=== PATIENT | male | born 1960 | race African-American/Black ===

== ENCOUNTER 2021-02-04 16:32 | Inpatient (IN) | payer OTHER ==
[2021-02-04] MEDS ORDERED: MAGNESIUM CITRATE 300 ML BOTTLE PO PRN (20:27)
[2021-02-04] MEDS ORDERED: MAGNESIUM HYDROX 2400MG/30ML ORAL SUSPENSION 30 ML CUP PO PRN (20:27)
[2021-02-04] MEDS ORDERED: DICYCLOMINE HCL 10 MG CAPSULE PO PRN (20:27)
[2021-02-04] MEDS ORDERED: MAG HYDROX/AL HYDROX/SIMETH 30 ML UNIT-DOSE CUP PO PRN (20:27)
[2021-02-04] MEDS ORDERED: NICOTINE 10 MG CARTRIDGE (INHALER) IH PRN (20:27)
[2021-02-04] MEDS ORDERED: BISMUTH SUBSALICYLATE 524 MG/30 ML PO PRN (20:27)
[2021-02-04] MEDS ORDERED: ONDANSETRON *ODT* 4 MG TABLET SL PRN (20:27)
[2021-02-04] MEDS ORDERED: ACETAMINOPHEN 325 MG TABLET (FP) PO PRN (20:27)
[2021-02-04] MEDS ORDERED: MENTHOL/PHENOL 1 EACH UD MM PRN (20:27)
[2021-02-04] MEDS ORDERED: P-EPHED 60MG/TRIPROLIDI 2.5MG TABLET PO PRN (20:27)
[2021-02-04] MEDS ORDERED: IBUPROFEN 400 MG TABLET (FP) PO PRN (20:27)
[2021-02-04] MEDS ORDERED: guaiFENesin 200 MG/10 ML 10 ML UNIT-DOSE CUPS PO PRN (20:27)
[2021-02-04 20:42] VITALS: BMI 36.7
[2021-02-04] MEDS: THIAMINE HCL 100 MG TABLET (FP) PO SCH (23:55)
[2021-02-04] MEDS: MELATONIN 5 MG TABLETS PO SCH (23:55)
[2021-02-05] MEDS ORDERED: diazePAM 5 MG TABLET PO PRN (10:46)
[2021-02-05] MEDS: NICOTINE 21 MG/24 HOURS TOPICAL PATCH TD SCH (11:43)
[2021-02-05] MEDS: PRENATAL VITAMINS W/ FOLIC ACID TABLET (FP) PO SCH (11:44)
[2021-02-05 12:13] LABS: HEMATOCRIT 38.1 % (35.4-49); HEMOGLOBIN 12.1 GM/dL (11.7-16.9); MCH 24.3 pg (25.7-33.7); MCHC 31.8 g/dl (32.0-35.9); MEAN CELL VOLUME 76.6 fl (80-96); MEAN PLT VOLUME 9.9 fl (7.5-11.1); PLATELET COUNT 198 10^3/uL (134-434); RBC 4.98 M/mm3 (4.00-5.60); RDW 16.4 % (11.9-15.9); WHITE BLOOD COUNT 6.1 K/mm3 (4.0-10.0)
[2021-02-05 12:19] LABS: BLOOD UREA NITROGEN 14.4 mg/dL (7-18); CALCIUM 8.2 mg/dL (8.5-10.1)
[2021-02-05 12:28] LABS: BILIRUBIN,TOTAL 0.8 mg/dL (0.2-1); CREATININE 1.3 mg/dL (0.55-1.3)
[2021-02-05 12:29] LABS: TOT PROT 6.6 g/dl (6.4-8.2)
[2021-02-05] MEDS: diazePAM 5 MG TABLET PO SCH ×3 (12:42→23:36)
[2021-02-05] MEDS: METHOCARBAMOL 500 MG TABLET PO PRN ×2 (13:42→23:36)
[2021-02-05] MEDS ORDERED: MASKS NR ONE (13:46)
[2021-02-05] MEDS: MELATONIN 5 MG TABLETS PO SCH (23:36)
[2021-02-05] MEDS: THIAMINE HCL 100 MG TABLET (FP) PO SCH (23:36)
[2021-02-06] MEDS: diazePAM 5 MG TABLET PO SCH ×4 (05:18→23:10)
[2021-02-06] MEDS: ACETAMINOPHEN 325 MG TABLET (FP) PO PRN (06:24)
[2021-02-06] MEDS: METHOCARBAMOL 500 MG TABLET PO PRN (06:24)
[2021-02-06] MEDS ORDERED: cloNIDine HCL 0.1 MG TABLET PO ONE ×2 (08:15→15:25)
[2021-02-06] MEDS: NICOTINE 21 MG/24 HOURS TOPICAL PATCH TD SCH (10:57)
[2021-02-06] MEDS: PRENATAL VITAMINS W/ FOLIC ACID TABLET (FP) PO SCH (10:57)
[2021-02-06] MEDS: hydrOXYzine PAMOATE 25 MG CAPSULE (FP) PO PRN ×2 (19:20→23:10)
[2021-02-06] MEDS: cloNIDine HCL 0.1 MG TABLET PO SCH (23:09)
[2021-02-06] MEDS: MELATONIN 5 MG TABLETS PO SCH (23:10)
[2021-02-06] MEDS: THIAMINE HCL 100 MG TABLET (FP) PO SCH (23:10)
[2021-02-07] MEDS: diazePAM 5 MG TABLET PO SCH ×3 (07:29→23:10)
[2021-02-07] MEDS: cloNIDine HCL 0.1 MG TABLET PO SCH ×2 (11:20→23:10)
[2021-02-07] MEDS: PRENATAL VITAMINS W/ FOLIC ACID TABLET (FP) PO SCH (11:20)
[2021-02-07] MEDS: NICOTINE 21 MG/24 HOURS TOPICAL PATCH TD SCH (11:20)
[2021-02-07] MEDS: ACETAMINOPHEN 325 MG TABLET (FP) PO PRN (11:21)
[2021-02-07] MEDS: METHOCARBAMOL 500 MG TABLET PO PRN (11:22)
[2021-02-07] MEDS: LISINOPRIL 10 MG TABLET PO SCH (14:45)
[2021-02-07] MEDS ORDERED: cloNIDine HCL 0.1 MG TABLET PO ONE (19:46)
[2021-02-07] MEDS: IBUPROFEN 400 MG TABLET (FP) PO PRN (20:00)
[2021-02-07] MEDS: MELATONIN 5 MG TABLETS PO SCH (23:10)
[2021-02-07] MEDS: THIAMINE HCL 100 MG TABLET (FP) PO SCH (23:15)
[2021-02-08] MEDS: diazePAM 5 MG TABLET PO SCH ×2 (06:29→21:00)
[2021-02-08] MEDS: IBUPROFEN 400 MG TABLET (FP) PO PRN (06:37)
[2021-02-08] MEDS: PRENATAL VITAMINS W/ FOLIC ACID TABLET (FP) PO SCH (11:07)
[2021-02-08] MEDS: NICOTINE 21 MG/24 HOURS TOPICAL PATCH TD SCH (11:07)
[2021-02-08] MEDS: LISINOPRIL 10 MG TABLET PO SCH (11:07)
[2021-02-08] MEDS: METHOCARBAMOL 500 MG TABLET PO PRN (11:13)
[2021-02-08] MEDS: ACETAMINOPHEN 325 MG TABLET (FP) PO PRN (11:13)
[2021-02-08] MEDS: cloNIDine HCL 0.1 MG TABLET PO SCH (13:11)
[2021-02-09] MEDS: cloNIDine HCL 0.1 MG TABLET PO SCH ×2 (00:08→10:46)
[2021-02-09] MEDS: MELATONIN 5 MG TABLETS PO SCH (00:08)
[2021-02-09] MEDS: THIAMINE HCL 100 MG TABLET (FP) PO SCH (00:08)
[2021-02-09] MEDS ORDERED: diazePAM 5 MG TABLET PO ONE (06:00)
[2021-02-09 06:37] VITALS: BP 156/98; PULSE 64; TEMP 97.5
[2021-02-09] MEDS: ACETAMINOPHEN 325 MG TABLET (FP) PO PRN (10:46)
[2021-02-09] MEDS: NICOTINE 21 MG/24 HOURS TOPICAL PATCH TD SCH (10:46)
[2021-02-09] MEDS: PRENATAL VITAMINS W/ FOLIC ACID TABLET (FP) PO SCH (10:46)
[2021-02-09] MEDS: LISINOPRIL 10 MG TABLET PO SCH (10:46)
== END 2021-02-09 18:35 | disposition other institution (70) | DRG 774 ==
LOC: YASAS 16:32 → Y3N 23:37
PROVIDERS: ADMIT Allergy & Immunology; ATTEND Allergy & Immunology
PROC: HZ2ZZZZ Detoxification Services for Substance Abuse Treatment (ICD-10-PCS; principal; 2021-02-04)
DX: F10.230 Alcohol dependence with withdrawal, uncomplicated (principal); F14.20 Cocaine dependence, uncomplicated; F16.20 Hallucinogen dependence, uncomplicated; F17.210 Nicotine dependence, cigarettes, uncomplicated; F31.9 Bipolar disorder, unspecified; F19.24 Other psychoactive substance dependence with psychoactive substance-induced mood disorder; I10 Essential (primary) hypertension; E66.9 Obesity, unspecified; Z68.39 Body mass index [BMI] 39.0-39.9, adult; M25.561 Pain in right knee; S80.01XD Contusion of right knee, subsequent encounter; W19.XXXD Unspecified fall, subsequent encounter; Z99.89 Dependence on other enabling machines and devices; Z56.0 Unemployment, unspecified; Z59.0 Homelessness
CPT/HCPCS: 36415; 80053; 85027; 86780; 93005; 93010; C9803; J0735; U0003; U0005

== ENCOUNTER 2021-02-09 18:14 | Inpatient (IN) | payer OTHER ==
[2021-02-09] MEDS ORDERED: IBUPROFEN 600 MG TABLET (FP) PO ONE (19:36)
[2021-02-09 20:36] VITALS: BP 188/126; PULSE 60; TEMP 98.4
[2021-02-09] MEDS ORDERED: MELATONIN 5 MG TABLETS PO SCH (22:00)
[2021-02-09] MEDS ORDERED: ACETAMINOPHEN 325 MG TABLET (FP) PO PRN (22:04)
[2021-02-09] MEDS ORDERED: guaiFENesin 200 MG/10 ML 10 ML UNIT-DOSE CUPS PO PRN (22:04)
[2021-02-09] MEDS ORDERED: MAGNESIUM CITRATE 300 ML BOTTLE PO PRN (22:04)
[2021-02-09] MEDS ORDERED: P-EPHED 60MG/TRIPROLIDI 2.5MG TABLET PO PRN (22:04)
[2021-02-09] MEDS ORDERED: MENTHOL/PHENOL 1 EACH UD MM PRN (22:04)
[2021-02-09] MEDS ORDERED: MAGNESIUM HYDROX 2400MG/30ML ORAL SUSPENSION 30 ML CUP PO PRN (22:04)
[2021-02-09] MEDS ORDERED: LOPERAMIDE HCL 2 MG CAPSULE PO PRN (22:04)
[2021-02-09] MEDS ORDERED: IBUPROFEN 400 MG TABLET (FP) PO PRN (22:04)
[2021-02-09] MEDS ORDERED: MAG HYDROX/AL HYDROX/SIMETH 30 ML UNIT-DOSE CUP PO PRN (22:04)
[2021-02-10] MEDS ORDERED: PRENATAL VITAMINS W/ FOLIC ACID TABLET (FP) PO SCH (10:00)
[2021-02-10] MEDS ORDERED: LISINOPRIL 10 MG TABLET PO SCH (10:00)
[2021-02-10] MEDS ORDERED: THIAMINE HCL 100 MG TABLET (FP) PO SCH (22:00)
== END 2021-02-10 00:58 | disposition short-term general hospital (02) | DRG 772 ==
LOC: YASAS 18:14 → Y3W 18:16
PROVIDERS: ADMIT Allergy & Immunology; ATTEND Allergy & Immunology
PROC: HZ42ZZZ Group Counseling for Substance Abuse Treatment, Cognitive-Behavioral (ICD-10-PCS; principal; 2021-02-09)
DX: F10.20 Alcohol dependence, uncomplicated (principal); F14.20 Cocaine dependence, uncomplicated; F16.20 Hallucinogen dependence, uncomplicated; F17.210 Nicotine dependence, cigarettes, uncomplicated; I10 Essential (primary) hypertension; E66.9 Obesity, unspecified; Z68.36 Body mass index [BMI] 36.0-36.9, adult; Z86.19 Personal history of other infectious and parasitic diseases; R29.6 Repeated falls; W07.XXXA Fall from chair, initial encounter; Y92.239 Unspecified place in hospital as the place of occurrence of the external cause
CPT/HCPCS: 70450-TC

== ENCOUNTER 2021-02-09 20:17 | Inpatient (IN) | payer OTHER ==
[2021-02-09 20:28] VITALS: BMI 35.4
[2021-02-09] MEDS ORDERED: morphine CARPU-JECT 4 MG/1 ML DISP.SYRIN IVPUSH ONE ×2 (20:50→23:43)
[2021-02-09] MEDS ORDERED: ACETAMINOPHEN 1000 MG/100 ML VIAL (NON FORMULARY) IVPB ONE (20:50)
[2021-02-09] MEDS ORDERED: LISINOPRIL 10 MG TABLET PO ONE (20:51)
[2021-02-09] MEDS ORDERED: LABETALOL HCL 100 MG TABLET (FP) PO ONE (20:51)
[2021-02-09 21:01] LABS: BASO % 0.7 % (0-2.0); EOS % 1.7 % (0-4.5); HEMATOCRIT 39.6 % (35.4-49); HEMOGLOBIN 12.5 GM/dL (11.7-16.9); LYMPH % 17.7 % (8-40); MCH 24.2 pg (25.7-33.7); MCHC 31.6 g/dl (32.0-35.9); MEAN CELL VOLUME 76.4 fl (80-96); MEAN PLT VOLUME 9.5 fl (7.5-11.1); MONO % 10.8 % (3.8-10.2); NEUT % 69.1 % (42.8-82.8); PLATELET COUNT 200 10^3/uL (134-434); RBC 5.19 M/mm3 (4.00-5.60); RDW 16.4 % (11.9-15.9); WHITE BLOOD COUNT 7.2 K/mm3 (4.0-10.0)
[2021-02-09 21:22] LABS: CHLORIDE 108 mmol/L (98-107); SODIUM 142 mmol/L (136-145)
[2021-02-09] MEDS ORDERED: morphine SULFATE 4 MG/ML VIAL ONE (21:23)
[2021-02-09 21:24] LABS: ALBUMIN 2.9 g/dl (3.4-5.0); ANION GAP 6 MMOL/L (8-16); CALCIUM 8.6 mg/dL (8.5-10.1); CO2 28 mmol/L (21-32); GLUCOSE,RANDOM 92 mg/dL (74-106)
[2021-02-09] MEDS ORDERED: LISINOPRIL 5 MG TABLET ONE (21:24)
[2021-02-09] MEDS ORDERED: ACETAMINOPHEN INJECTION 100 ML IVPB ONE (21:24)
[2021-02-09] MEDS ORDERED: LABETALOL HCL 100 MG TABLET (FP) ONE (21:24)
[2021-02-09 21:25] LABS: BLOOD UREA NITROGEN 17.2 mg/dL (7-18)
[2021-02-09 21:27] LABS: SGOT/AST 23 U/L (15-37); SGPT/ALT 35 U/L (13-61)
[2021-02-09 21:28] LABS: CREATININE 1.3 mg/dL (0.55-1.3)
[2021-02-09 21:29] LABS: BILIRUBIN,TOTAL 0.3 mg/dL (0.2-1); TOT PROT 6.8 g/dl (6.4-8.2)
[2021-02-09 21:30] LABS: ALK PHOS 76 U/L (45-117)
[2021-02-09 21:32] LABS: N-TERMINAL BNP 296.4 pg/ml (5-125)
[2021-02-10] MEDS ORDERED: ACETAMINOPHEN 325 MG TABLET (FP) PO PRN ×3 (02:23→16:00)
[2021-02-10 06:43] LABS: BASO % 0.7 % (0-2.0); EOS % 1.5 % (0-4.5); HEMATOCRIT 36.4 % (35.4-49); HEMOGLOBIN 11.7 GM/dL (11.7-16.9); MCH 24.5 pg (25.7-33.7); MCHC 32.2 g/dl (32.0-35.9); MEAN CELL VOLUME 76.1 fl (80-96); MEAN PLT VOLUME 9.9 fl (7.5-11.1); MONO % 9.2 % (3.8-10.2); NEUT % 67.6 % (42.8-82.8); PLATELET COUNT 181 10^3/uL (134-434); RBC 4.78 M/mm3 (4.00-5.60); RDW 16.4 % (11.9-15.9); WHITE BLOOD COUNT 6.8 K/mm3 (4.0-10.0)
[2021-02-10 07:03] LABS: BLOOD UREA NITROGEN 19.1 mg/dL (7-18); CALCIUM 7.8 mg/dL (8.5-10.1)
[2021-02-10 07:04] LABS: ALBUMIN 2.6 g/dl (3.4-5.0); MAGNESIUM 2.2 mg/dL (1.8-2.4)
[2021-02-10 07:07] LABS: BILIRUBIN,TOTAL 0.6 mg/dL (0.2-1); CREATININE 1.3 mg/dL (0.55-1.3); PHOSPHOROUS 4.4 mg/dL (2.5-4.9); TOT PROT 6.2 g/dl (6.4-8.2)
[2021-02-10] MEDS ORDERED: ACETAMINOPHEN 325 MG TABLET (FP) ONE ×2 (09:05→09:10)
[2021-02-10] MEDS: HYDROCHLOROTHIAZIDE 12.5 MG CAPSULE (FP) PO SCH (09:10)
[2021-02-10] MEDS ORDERED: HYDROCHLOROTHIAZIDE 25 MG TABLET (FP) ONE (09:53)
[2021-02-10] MEDS ORDERED: LISINOPRIL 10 MG TABLET PO SCH ×2 (10:00→22:00)
[2021-02-10] MEDS ORDERED: MORPHINE SULFATE 2 MG/ML VIAL IVPUSH PRN (10:01)
[2021-02-10 10:12] LABS: EPI CELLS 12 /uL (0-25.1); HYALINE CASTS 5 /uL (0-3.1); PH,URINE 5.5 (5.0-8.0); URINE APPEARANCE CLEAR; URINE BACTERIA 77 /uL (0-1359); URINE BILIRUBIN NEGATIVE (NEGATIVE); URINE COLOR YELLOW; URINE GLUCOSE (UA) NEGATIVE (NEGATIVE); URINE KETONE NEGATIVE (NEGATIVE); URINE LEUK ESTERASE 1+ (NEGATIVE); URINE NITRITE NEGATIVE (NEGATIVE); URINE PROTEIN NEGATIVE (NEGATIVE); URINE RBC 8 /uL (0-23.9); URINE WBC 114 /uL (0-25.8)
[2021-02-10] MEDS: ENOXAPARIN NA (PORCINE) 40 MG/0.4 ML DISP.SYRIN SQ SCH (10:22)
[2021-02-10] MEDS ORDERED: ENOXAPARIN NA (PORCINE) 40 MG/0.4 ML DISP.SYRIN SQ ONE (10:42)
[2021-02-10] MEDS ORDERED: MORPHINE SULFATE 2 MG/ML VIAL ONE (12:29)
[2021-02-10] MEDS ORDERED: ALBUTEROL SO4 HFA INHALER IH PRN (15:45)
[2021-02-10] MEDS: NIFEdipine E.R 60 MG TABLET PO SCH (17:10)
[2021-02-10] MEDS ORDERED: UMECLIDINIUM/VILANTEROL (ANORO) 62.5/25 MCG INHALER IH SCH (22:00)
[2021-02-10] MEDS ORDERED: QUEtiapine FUMARATE 25 MG TABLET ONE (23:07)
[2021-02-11] MEDS ORDERED: morphine SULFATE 4 MG/ML VIAL ONE (03:27)
[2021-02-11] MEDS: morphine SULFATE 4 MG/ML VIAL IVPUSH PRN ×2 (03:46→10:56)
[2021-02-11] MEDS: UMECLIDINIUM/VILANTEROL (ANORO) 62.5/25 MCG INHALER IH SCH ×2 (07:22→11:01)
[2021-02-11 08:20] LABS: CHLORIDE 104 mmol/L (98-107); SODIUM 139 mmol/L (136-145)
[2021-02-11 08:23] LABS: HEMATOCRIT 35.8 % (35.4-49); HEMOGLOBIN 11.5 GM/dL (11.7-16.9); MCH 24.3 pg (25.7-33.7); MEAN CELL VOLUME 76.1 fl (80-96); MEAN PLT VOLUME 9.8 fl (7.5-11.1); PLATELET COUNT 203 10^3/uL (134-434); RBC 4.71 M/mm3 (4.00-5.60); RDW 15.8 % (11.9-15.9); WHITE BLOOD COUNT 7.1 K/mm3 (4.0-10.0)
[2021-02-11 08:36] LABS: ALBUMIN 2.6 g/dl (3.4-5.0); ANION GAP 7 MMOL/L (8-16); BLOOD UREA NITROGEN 18.9 mg/dL (7-18); CO2 28 mmol/L (21-32); GLUCOSE,RANDOM 85 mg/dL (74-106); TRIGLYCERIDES 123 mg/dL (0-150)
[2021-02-11 08:39] LABS: CHOLESTEROL 163 mg/dL (50-200); CREATININE 1.3 mg/dL (0.55-1.3); LDL CHOLESTEROL (ONLY SJRH) 92 mg/dL (5-100)
[2021-02-11 08:40] LABS: ALK PHOS 69 U/L (45-117); BILIRUBIN,TOTAL 0.8 mg/dL (0.2-1); SGOT/AST 23 U/L (15-37); SGPT/ALT 42 U/L (13-61); TOT PROT 6.2 g/dl (6.4-8.2)
[2021-02-11 08:42] LABS: HDL CHOLESTEROL 41 mg/dL (40-60)
[2021-02-11] MEDS ORDERED: PNEUMOC 13-VAL CONJ-DIP CRM/PF 0.5 ML DISP.SYRIN IM ONE (08:51)
[2021-02-11] MEDS: HYDROCHLOROTHIAZIDE 12.5 MG CAPSULE (FP) PO SCH (11:00)
[2021-02-11] MEDS: ENOXAPARIN NA (PORCINE) 40 MG/0.4 ML DISP.SYRIN SQ SCH (11:00)
[2021-02-11] MEDS: NIFEdipine E.R 60 MG TABLET PO SCH (11:01)
[2021-02-11] MEDS ORDERED: PNEUMOCOCCAL 23 VACCINE 0.5 ML VIAL IM ONE (11:10)
[2021-02-11] MEDS ORDERED: BUPIVACAINE LIPOSOME/PF (EXPAREL) 266 MG/20 ML VIAL ONE (11:41)
[2021-02-11] MEDS ORDERED: BUPIVACAINE HCL/PF 0.5% (5MG/ML) 10 ML VIAL ONE ×2 (11:41→12:37)
[2021-02-11] MEDS ORDERED: SODIUM CHLORIDE 0.9% P/F 10 ML VIAL IJ ONE (11:42)
[2021-02-11] MEDS ORDERED: MIDAZOLAM HCL 2 MG/2 ML SINGLE DOSE VIAL ONE ×2 (11:42)
[2021-02-11] MEDS ORDERED: ceFAZolin SODIUM 1 GM VIAL ONE (12:48)
[2021-02-11] MEDS ORDERED: DEXAMETHASONE SOD PHOSPHATE 4 MG/1 ML VIAL ONE (12:48)
[2021-02-11] MEDS ORDERED: ONDANSETRON 4 MG/2 ML VIAL ONE (12:48)
[2021-02-11] MEDS ORDERED: ceFAZolin SODIUM 1 GM VIAL IVPB ONE (12:50)
[2021-02-11] MEDS ORDERED: ONDANSETRON 4 MG/2 ML VIAL IVPUSH PRN ×2 (13:28→15:11)
[2021-02-11] MEDS ORDERED: LACTATED RINGERS SOLUTION 1,000 ML IV SCH ×2 (13:30→15:11)
[2021-02-11] MEDS ORDERED: MORPHINE SULFATE 2 MG/ML VIAL IVPUSH PRN (15:11)
[2021-02-11] MEDS ORDERED: ALBUTEROL SO4 HFA INHALER IH PRN (15:11)
[2021-02-11] MEDS ORDERED: ACETAMINOPHEN 325 MG TABLET (FP) PO PRN ×2 (15:11)
[2021-02-11] MEDS ORDERED: oxyCODONE HCL 5 MG TABLET PO ONE (19:44)
[2021-02-11] MEDS: CEFAZOLIN 3 GM in DEXTROSE 5%-WATER - 100 ML IVPB SCH (20:24)
[2021-02-11] MEDS ORDERED: CEFAZOLIN 3 GM in DEXTROSE 5%-WATER - 100 ML IVPB SCH (21:00)
[2021-02-11] MEDS ORDERED: LABETALOL HCL 100 MG TABLET (FP) PO ONE (21:07)
[2021-02-11] MEDS ORDERED: hydrALAZINE HCL 10 MG TABLET PO ONE (21:11)
[2021-02-11] MEDS: ATORVASTATIN CA 40 MG TABLET (FP) PO SCH (21:38)
[2021-02-12] MEDS: morphine SULFATE 4 MG/ML VIAL IVPUSH PRN ×2 (03:29→09:24)
[2021-02-12] MEDS: HYDROCHLOROTHIAZIDE 12.5 MG CAPSULE (FP) PO SCH ×2 (04:13→08:07)
[2021-02-12] MEDS: CEFAZOLIN 3 GM in DEXTROSE 5%-WATER - 100 ML IVPB SCH (04:21)
[2021-02-12] MEDS ORDERED: HYDROCHLOROTHIAZIDE 12.5 MG CAPSULE (FP) PO SCH (07:00)
[2021-02-12] MEDS: ENOXAPARIN NA (PORCINE) 40 MG/0.4 ML DISP.SYRIN SQ SCH (09:01)
[2021-02-12] MEDS: NIFEdipine E.R 60 MG TABLET PO SCH (09:01)
[2021-02-12] MEDS ORDERED: PT OWN MED DRAWER 7, Y5N ONE ×2 (09:22→21:43)
[2021-02-12] MEDS ORDERED: oxyCODONE HCL 5 MG TABLET PO PRN (09:42)
[2021-02-12] MEDS ORDERED: PNEUMOCOCCAL 23 VACCINE 0.5 ML VIAL IM ONE (10:00)
[2021-02-12] MEDS: UMECLIDINIUM/VILANTEROL (ANORO) 62.5/25 MCG INHALER IH SCH (11:10)
[2021-02-12 11:23] LABS: HEMATOCRIT 36.7 % (35.4-49); HEMOGLOBIN 11.5 GM/dL (11.7-16.9); MCH 23.6 pg (25.7-33.7); MCHC 31.4 g/dl (32.0-35.9); MEAN CELL VOLUME 75.1 fl (80-96); MEAN PLT VOLUME 9.5 fl (7.5-11.1); PLATELET COUNT 231 10^3/uL (134-434); RBC 4.89 M/mm3 (4.00-5.60); RDW 15.8 % (11.9-15.9); WHITE BLOOD COUNT 12.2 K/mm3 (4.0-10.0)
[2021-02-12 12:04] LABS: BLOOD UREA NITROGEN 19.1 mg/dL (7-18)
[2021-02-12 12:06] LABS: CALCIUM 8.7 mg/dL (8.5-10.1)
[2021-02-12 12:08] LABS: CREATININE 1.2 mg/dL (0.55-1.3)
[2021-02-12] MEDS: oxyCODONE HCL 5 MG TABLET PO PRN ×2 (12:15→18:25)
[2021-02-12] MEDS: ATORVASTATIN CA 40 MG TABLET (FP) PO SCH (21:44)
[2021-02-13] MEDS: oxyCODONE HCL 5 MG TABLET PO PRN ×4 (01:16→20:52)
[2021-02-13] MEDS: HYDROCHLOROTHIAZIDE 12.5 MG CAPSULE (FP) PO SCH (06:19)
[2021-02-13] MEDS: NIFEdipine E.R 60 MG TABLET PO SCH (09:07)
[2021-02-13] MEDS: ENOXAPARIN NA (PORCINE) 40 MG/0.4 ML DISP.SYRIN SQ SCH (09:07)
[2021-02-13] MEDS: UMECLIDINIUM/VILANTEROL (ANORO) 62.5/25 MCG INHALER IH SCH (09:08)
[2021-02-13] MEDS ORDERED: NIFEdipine E.R. 30 MG TABLET PO ONE (11:45)
[2021-02-13] MEDS ORDERED: HYDROCHLOROTHIAZIDE 12.5 MG CAPSULE (FP) PO ONE (12:45)
[2021-02-13] MEDS ORDERED: PT OWN MED DRAWER 7, Y5N ONE (20:59)
[2021-02-13] MEDS: ATORVASTATIN CA 40 MG TABLET (FP) PO SCH (21:31)
[2021-02-14] MEDS: oxyCODONE HCL 5 MG TABLET PO PRN ×3 (04:39→18:44)
[2021-02-14] MEDS ORDERED: HYDROCHLOROTHIAZIDE 25 MG TABLET (FP) PO SCH (07:00)
[2021-02-14] MEDS ORDERED: NIFEdipine E.R. 90 MG TABLET PO SCH (10:00)
[2021-02-14 10:12] LABS: HEMATOCRIT 34.8 % (35.4-49); HEMOGLOBIN 11.2 GM/dL (11.7-16.9); MCH 23.9 pg (25.7-33.7); MCHC 32.1 g/dl (32.0-35.9); MEAN CELL VOLUME 74.5 fl (80-96); MEAN PLT VOLUME 9.1 fl (7.5-11.1); PLATELET COUNT 232 10^3/uL (134-434); RBC 4.67 M/mm3 (4.00-5.60); RDW 15.5 % (11.9-15.9); WHITE BLOOD COUNT 8.4 K/mm3 (4.0-10.0)
[2021-02-14] MEDS: ENOXAPARIN NA (PORCINE) 40 MG/0.4 ML DISP.SYRIN SQ SCH (10:20)
[2021-02-14] MEDS: UMECLIDINIUM/VILANTEROL (ANORO) 62.5/25 MCG INHALER IH SCH (10:21)
[2021-02-14 10:41] LABS: BLOOD UREA NITROGEN 18.3 mg/dL (7-18); CALCIUM 8.2 mg/dL (8.5-10.1)
[2021-02-14 10:45] LABS: CREATININE 1.1 mg/dL (0.55-1.3)
[2021-02-14] MEDS ORDERED: HYDROCHLOROTHIAZIDE 12.5 MG CAPSULE (FP) PO ONE (11:42)
[2021-02-14] MEDS ORDERED: POLYETHYLENE GLYCOL 3350 119 GM BTL PO ONE (15:14)
[2021-02-14] MEDS ORDERED: POLYETHYLENE GLYCOL (HEALTHYLAX) 3350 17 GM PACKET PO SCH (16:00)
[2021-02-14] MEDS ORDERED: PT OWN MED DRAWER 7, Y5N ONE (21:31)
[2021-02-14] MEDS: ATORVASTATIN CA 40 MG TABLET (FP) PO SCH (21:31)
[2021-02-14] MEDS ORDERED: SENNOSIDES 8.6MG TABLET (FP) PO SCH (22:00)
[2021-02-14 22:32] VITALS: BP 136/85; PULSE 80; TEMP 98.4
[2021-02-15] MEDS ORDERED: POLYETHYLENE GLYCOL 3350 119 GM BTL PO SCH (10:00)
== END 2021-02-14 22:48 | DRG 317 ==
LOC: JER 20:17 → JERBED 23:10 → J6S 02-11 10:00
PROVIDERS: ADMIT Internal Medicine; ATTEND Internal Medicine
PROC: 0LQQ0ZZ Repair Right Knee Tendon, Open Approach (ICD-10-PCS; principal; 2021-02-11 12:30)
DX: S86.811A Strain of other muscle(s) and tendon(s) at lower leg level, right leg, initial encounter (principal); I50.32 Chronic diastolic (congestive) heart failure; F19.10 Other psychoactive substance abuse, uncomplicated; G47.33 Obstructive sleep apnea (adult) (pediatric); I16.0 Hypertensive urgency; I11.0 Hypertensive heart disease with heart failure; F17.210 Nicotine dependence, cigarettes, uncomplicated; E66.9 Obesity, unspecified; Z68.35 Body mass index [BMI] 35.0-35.9, adult; W19.XXXA Unspecified fall, initial encounter; Y93.9 Activity, unspecified; Y92.89 Other specified places as the place of occurrence of the external cause; Y99.9 Unspecified external cause status
CPT/HCPCS: 36415; 71045-TC-FY; 73562-TC-RT-FY; 73700-TC-RT; 80048; 80053; 80061; 81003; 82550; 82553; 83036; 83735; 83880; 84100; 84443; 84484; 85025; 85027; 93005; 93010; 93306-TC; 93971-TC; 94010; 94760; 97116-GP; 97162-GP; 99285-25; C9803; J0131; U0003; U0005